=== PATIENT | male | born 1990 | race Caucasian/White ===

== ENCOUNTER 2018-09-07 13:54 | Emergency (ER) | payer OTHER ==
[~2018-09-07] VITALS: Ht 193 cm; Wt 86.2 kg
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
[2018-09-07] MEDS ORDERED: HYDROcodone/APAP 5/325MG 1 TAB TABLET PO ONE (14:45)
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
[2018-09-07 15:30] VITALS: BP 144/75
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
[2018-09-07] MEDS ORDERED: LIDOCAINE 1%/EPI 1:100,000 20 ML VIAL. ONE (15:48)
[2018-09-07] MEDS ORDERED: LIDOCAINE 1%/EPI 1:100,000 20 ML VIAL. INJ ONE (16:15)
[2018-09-07] MEDS ORDERED: HYDR-3164 PO (16:47)
[2018-09-07] MEDS ORDERED: BACITRACIN TOPICAL OINT 14GM TUBE. TP ONE (17:15)
== END 2018-09-07 17:03 | disposition home or self-care (01) ==
LOC: EEVIPCON 13:54 → ER 13:54
DX: S01.01XA Laceration without foreign body of scalp, initial encounter (principal); S60.221A Contusion of right hand, initial encounter; M25.562 Pain in left knee; R51 Headache; M54.2 Cervicalgia; R68.84 Jaw pain; Y04.2XXA Assault by strike against or bumped into by another person, initial encounter; Y93.89 Activity, other specified; Y92.89 Other specified places as the place of occurrence of the external cause; Y99.8 Other external cause status
CPT/HCPCS: 12004; 70450; 70486; 72125; 73110; 73130; 73562; 99284; J3490